=== PATIENT | male | born 1965 | race Caucasian/White ===

== ENCOUNTER 2018-11-24 20:29 | Inpatient (IN) | payer BC ==
[~2018-11-24] VITALS: Ht 190.5 cm; Wt 123.0 kg
--- NOTE | ~2018-11-24 | PR ---
[place], [place] PROGRESS NOTE NAME: KARISSA SCHMID UNIT #: [id number] ROOM: 517 DOCTOR: CALIN MORALES MD BIRTHDATE: [birth year] DOS: 12/01/2018 PULMONARY PROGRESS NOTE SUBJECTIVE: The patient has not been noted any acute complaints. Intermittent abdominal pain has not been noted severe. Denies symptoms of nausea or vomiting. Denies any acute shortness of breath. Denies symptoms of chills. OBJECTIVE: VITAL SIGNS: Temperature noted low grade at 100 degrees Fahrenheit, normal temperature, respiratory rate 20, heart rate 72, blood pressure 164/98 this morning. Pulse oxygen saturation on room air was 96% saturation. HEENT: Moderate obesity. Head was atraumatic. Eyes nonicterus. NECK: Supple. CARDIOVASCULAR: S1 and S2 audible. LUNGS: The patient was noted clear of wheezing or crackles. ABDOMEN: Soft. Bowel sounds present. There was no tenderness elicited. EXTREMITIES: The patient was noted without any acute edema, clubbing or cyanosis. LABORATORY AND DIAGNOSTIC DATA: The patient had a CT scan of the abdomen and pelvis done yesterday with contrast, it shows acute inflammatory changes in the pancreas as well as in parts of the duodenum. There was no abscess formation. Necrotic pancreas was suggested. Lower portion of the CT scan of chest was noted with significant improvement in the aeration and resolution of the pleural fluids. IMPRESSION: 1. The patient with resolving pleural fluid and area of atelectasis. 2. Acute pancreatitis. 2. Chronic obesity. PLAN OF MANAGEMENT: No changes from the pulmonary standpoint. The patient has been improving from pulmonary standpoint. Continue GI followup for the pancreatitis management component. [place], [place] PROGRESS NOTE NAME: KARISSA SCHMID UNIT #: [id number] ROOM: 517 DOCTOR: CALIN MORALES MD BIRTHDATE: [birth year] CALIN ROSALES MD CM:PNTRANS [id number] CALIN RAMOS MD 12/01/18 2317 interface
--- NOTE | ~2018-11-24 | PR ---
[place], [place] PROGRESS NOTE NAME: KARISSA SCHMID UNIT #: [id number] ROOM: [facility] DOCTOR: CONNIE RAMOS MD,CALIN BIRTHDATE: [birth year] DOS: 11/30/2018 PULMONARY PROGRESS NOTE SUBJECTIVE: The patient was noted stable at present time, has been still complaining of pain in the abdomen, but the pain has been noted decreased. There were no symptoms of chest pain. Small sputum expectoration noted with a cough at this time. There were no symptoms of shortness of breath, has not been noted any NOTE: INCOMPLETE DICTATION CALIN ROSALES MD CM:PNTRANS 1512 0001 CALIN RAMOS MD 12/01/18 0002 interface
--- NOTE | ~2018-11-24 | CON ---
[place], [place] REPORT OF CONSULTATION NAME: KARISSA SCHMID UNIT #: [id number] ROOM: 517 DOCTOR: CARMEL PARKER MD BIRTHDATE: [birth year] DOS: 11/26/2018 GASTROENDOSCOPIC CONSULTATION HISTORY OF PRESENT ILLNESS: This a 52-year-old gentleman, who presented with sudden cross abdominal pain, nocturnally developed. He is trying to contribute it to some of the meals that he has taken. However, at the time of admission, his blood sugar was 200 with GFR greater than 60. His electrolytes were balanced. His bilirubin normal. However, SGOT and SGPT of 74 and 180 respectively with an elevated alkaline phosphatase and greater than 4300 lipase. White blood cell was 30 and his neutrophils were 91. Definitely inflammatory response, lactic acid is 2.5. Chest x-ray was showing no acute pathology. CT scan of the abdomen and pelvis done and there were findings compatible with acute pancreatitis, correlation was recommended. Gallbladder sonogram was done. Diffuse hepatic steatosis, no cholelithiasis. No gallbladder thickening and no biliary dilation was noticed. CBC, white blood cell remains 30. Comprehensive metabolic panel reassessment, continues with abnormal LFTs, lipase 2800, dropped to 50%, improvement. Comprehensive metabolic panel was reassessed. Blood cultures negative. PAST MEDICAL HISTORY: Associated with obesity, diabetes mellitus, gastroesophageal reflux, hypertension, gastritis, and hyperlipidemia was noticed. SOCIAL HISTORY: Nonsmoker, nonalcohol consumer. PAST SURGICAL HISTORY: None. ALLERGIES: No known medication. FAMILY HISTORY: History of hypertension and Crohn's. REVIEW OF SYSTEMS: HEENT: Denies double vision, blurred vision. RESPIRATORY: Denies acute shortness of breath. CARDIOVASCULAR: Denies chest pain. DIGESTIVE SYSTEM: Admitted with cross abdominal pain radiating to the back. PHYSICAL EXAMINATION: GENERAL: Morbidly obese patient. HEENT: Head normocephalic, nontraumatic. Mouth and buccal mucosa benign. NECK: Supple, no thyromegaly, no cervical lymphadenopathy. CHEST: Symmetric anatomy, equal expansion. No wheeze. Rhonchi is anteriorly. HEART: Normal sinus rhythm; however, with tachycardic rate of about 100. No rub. ABDOMEN: Obese, large. No rebound tenderness. Bowel sounds present. EXTREMITIES: No cyanosis. Mild stasis dermatitis noticed. No edema is identified. NEUROLOGIC: Alert and oriented to time, place, person. [place], [place] REPORT OF CONSULTATION NAME: KARISSA SCHMID UNIT #: [id number] ROOM: 517 DOCTOR: ELENA RANDHAWA,CARMEL BIRTHDATE: [birth year] IMPRESSION: Pancreatitis, etiology has been sorted out and we are going to start from serum triglyceride level and continue with supportive care with normal saline infusions and pain management and once triglyceride reported then further adjustment to the management pursuant is going to be done. At this time, I am going to say some of the abnormalities SGOT, SGPT, and alkaline phosphatase are also secondary to intrinsic liver disease i.e., secondary to fatty steatosis as well. No intraductal dilation. Therefore, this puts choledocholithiasis at the bottom of possibilities. Work in progress. Thank you very much indeed. CARMEL PARKER MD CM:CONSTR:REPORT OF CONSULTATION 1715 12/10/18 0742 interface
--- NOTE | ~2018-11-24 | PR ---
[place], [place] PROGRESS NOTE NAME: KARISSA SCHMID UNIT #: [id number] ROOM: [facility] DOCTOR: CONNIE RAMOS MD,CALIN BIRTHDATE: [birth year] DOS: 11/30/2018 PULMONARY PROGRESS NOTE SUBJECTIVE: Abdominal pain seemed to be somewhat better previously. The patient denies symptoms of shortness of breath. There was no cough. There were no symptoms of chest pain. Denies symptoms of nausea or vomiting. OBJECTIVE: VITAL SIGNS: His temperature was noted as normal, 100 degrees Fahrenheit noted at midnight, respiratory rate of 16, heart rate 71, blood pressure 176/84 recorded. Pulse oxygen saturation on room air at rest was 98% saturation. HEENT: Shows moderate obesity. Head was atraumatic. Eyes nonicterus. NECK: Supple. CARDIOVASCULAR SYSTEM: S1, S2 audible. LUNGS: The patient noted mild crackles in the lung bases with decreased breath sounds. ABDOMEN: Soft, nontender, bowel sounds present. EXTREMITIES: No acute edema. IMPRESSION: The patient with stable respiratory status, basilar area of atelectasis, acute pancreatitis, low grade fever, rule out lower abdominal pathology for this patient because of the fever. PLAN OF MANAGEMENT: No change in plan of care. Monitor respiratory status. Bronchodilators as previously. Incentive spirometry. Proceed with the CT scan of the abdomen and pelvis, which has been ordered by the primary care attending. CALIN ROSALES MD CM:PNTRANS 1518 [id number] CALIN RAMOS MD 12/01/18 0013 interface
--- NOTE | ~2018-11-24 | EKG ---
[place], [place] ELECTROCARDIOGRAM REPORT NAME: KARISSA SCHMID UNIT #: [id number] ROOM: 507 DOCTOR: ADRIAN DRAFT REPORT BIRTHDATE: [birth year] [facility] Test Date: 2018-11-24 Test Time: 20:58:43 Pat Name: KARISSA SCHMID Department: Room: [facility] Gender: M [employer] Hand: Enid Cano : 1965 Requested By: GABRIEL ESTRADA Order Number: [id number] Reading MD: Walter Pemberton MD Measurements Intervals [place] Rate: 97 P: 41 TN: 189 QRS: 45 QRSD: 105 T: 18 QT: 373 QTc: 474 Interpretive Statements Sinus rhythm Left atrial enlargement Cannot rule out recent posterior MT Compared to ECG 08/01/2018 12:27:21 Myocardial infarct finding still present ST (T wave) deviation still present Electronically Signed On 11-25-2018 17:07:13 PST by Walter Pemberton MD CM:EKGRPT:ELECTROCARDIOGRAM REPORT 57 170 GABRIEL DIALLO DRAFT REPORT GABRIEL ESTRADA DO
--- NOTE | ~2018-11-24 | CON ---
[place], [place] REPORT OF CONSULTATION NAME: KARISSA SCHMID UNIT #: [id number] ROOM: [facility] DOCTOR: CONNIE RAMOS MD,CALIN BIRTHDATE: [birth year] DOS: 11/29/2018 PULMONARY CONSULTATION, EVALUATION AND MANAGEMENT REASON FOR CONSULTATION: Assess the patient for respiratory failure. CONSULTATION REQUESTED BY: Corona Mosher MD HISTORY OF PRESENT ILLNESS: A 52-year-old white male patient who develop acute abdominal pain as the patient was visiting [place], [place] in the hotel. The patient's pain was described in the mid and lower portion of the abdomen and later on the upper portion of the abdomen associated with one-time vomiting. He was also noted with symptoms of nausea. The patient has been seen by ____ and sent to the hospital for further medical management and hospitalized on 11/24/2018. The patient stated the pain has been still noted intermittently. The severity of the pain has been decreased, but not completely resolved. He has been receiving intravenous pain medication, Dilaudid and Toradol at times. He has been assessed with CT scan of the chest yesterday because of the hypoxia noted at rest. The CT of the chest did exclude evidence of pulmonary embolism. The patient denies any coughing or sputum expectoration, which is new, but reported symptoms of chronic cough for the past couple of months, which were reported nonproductive. He denies acute shortness of breath at rest. Denies symptoms of wheezing. There were no symptoms of hemoptysis or chest pain reported by the patient at this time of assessment. The patient has been currently diagnosed with acute pancreatitis, which has been treated conservatively with consultation from GI services. REVIEW OF SYSTEMS: CONSTITUTIONAL SYMPTOMS: Fatigue and tiredness noted without any symptoms of fever or chills. EYES: Denies burning, redness, or tenderness. EARS, NOSE, THROAT SYMPTOMS: Denies sore throat, hoarseness, otalgia, postnasal drainage, or epistaxis. CARDIOVASCULAR SYSTEM: Denies angina pain, edema, or pain of the lower extremity. GASTROINTESTINAL SYMPTOMS: The patient was still complaining of pain in the mid and upper portion of the abdomen intermittently, which was mild to moderate at times without radiation. The patient denies symptoms of nausea, vomiting, or diarrhea. Denies symptoms of hematemesis, melena, or hematochezia. Stated weight loss of a few pounds in the past few months. MUSCULOSKELETAL SYMPTOMS: No joint pain, redness, or tenderness. SKIN: Denies lesions or rashes. CENTRAL NERVOUS SYSTEM: Denies dizziness, headache, diplopia, or syncopal episode. Remaining systems were reviewed. They were noted all negative. PAST MEDICAL HISTORY: Reported as: 1. Moderate obesity. 2. Type 2 diabetes mellitus. [place], [place] REPORT OF CONSULTATION NAME: KARISSA SCHMID UNIT #: [id number] ROOM: [facility] DOCTOR: TINO MORALES MDULAM BIRTHDATE: [birth year] 3. Gastroesophageal reflux. 4. Essential hypertension. 5. Gastritis. 6. Hyperlipidemia. SOCIAL HISTORY: The patient is . Noted no alcohol use. No history of illicit drug use or any tobacco use reported. FAMILY HISTORY: The patient's father at 86 years due to complication of intracerebral hemorrhage. Mother at 84 years due to complication of stroke with history of Crohn's disease also reported. HOME MEDICATIONS: Listed as Lipitor, vitamin D, ferrous sulfate, folic acid, Tradjenta, lisinopril, metoprolol and Protonix. CURRENT ADMINISTERED MEDICATIONS: Use of Norvasc, clonidine, metoprolol tartrate, lisinopril, Lovenox, DVT prophylaxis, cefepime, Toradol, and Dilaudid. DRUG ALLERGIES: No known drug allergies. PHYSICAL EXAMINATION: GENERAL: This is a 52-year-old white male, currently sitting on side of bed without any acute distress. Height of 6 feet 3 inches, weight of 271 pounds, BMI 33.9. VITAL SIGNS: The patient's temperature noted yesterday at 7 p.m. as 101 degree Fahrenheit and at this noon 100.7 degree Fahrenheit, otherwise the patient noted afebrile. Respiratory rate 12-24, heart rate of 76-70, blood pressure 171/98-194/103. HEENT: Head was atraumatic. Eyes nonicterus. NECK: Supple. Oral mucosa was moist. CARDIOVASCULAR SYSTEM: S1, S2 is audible. No added sounds. LUNGS: The patient was noted with minimal crackles at the lung bases with decreased breath sounds. There was no wheezing. ABDOMEN: Noted with moderate obesity without any severe tenderness. Bowel sounds seem to be present. EXTREMITIES: The patient noted without any acute edema, clubbing or cyanosis. MUSCULOSKELETAL: Without acute deformities. CENTRAL NERVOUS SYSTEM: The patient's cranial nerves 2-12 were noted as intact. LABORATORY DATA: CBC on admission was noted with WBC count of 30.6. Hemoglobin and hematocrit were noted normal on 11/24/2018. Platelet count was recorded at 304, 91% segmented neutrophil. Lactic acid 2.5 on that day and the followup lactic acid the same day on 11/24/2018 was normal. CMP on admission; glucose 201, normal BUN and creatinine. The AST 74, ALT 180, alkaline phosphatase 163. Lipase elevated 4351 with normal troponins. The urinalysis that was done on 11/25/2018 noted 1+ protein. CBC on 11/25/2018; WBC count still noted persistent 30,000. Otherwise, CBC remains essentially unchanged. CMP on the next day, normal BUN and creatinine. Reduction of the AST, ALT were also noted. Lipase followup was 2800 the next day as well. Triglyceride this morning was noted as 159 this morning. CMP this morning, normal BUN and creatinine. AST, [place], [place] REPORT OF CONSULTATION NAME: KARISSA SCHMID UNIT #: [id number] ROOM: [facility] DOCTOR: CONNIE RAMOS [facility] BIRTHDATE: [birth year] ALT resolved progressively. CBC that was done yesterday; WBC count 12.3, hemoglobin 11, hematocrit 34.5, platelet count 217,000. The arterial blood gas yesterday pH of 7.42, pCO2 of 54.9 at rest on room air. REVIEW OF THE RADIOLOGY DATA: The chest x-ray that was done on 11/24/2018 was reviewed, was not noted with any acute abnormalities. Chest x-ray that was yesterday completed shows basilar areas of atelectasis. CT of the chest that was completed yesterday does not show any evidence of pulmonary embolism. Small basilar area of atelectasis noted in the lower lung. These findings of the basilar area of atelectasis was also visible with the previous CT scan images included and the CT scan of the abdomen and pelvis that was done on admission. Interval development of small bilateral pleural fluid was noted, greater on the right than the left side. Ultrasound of abdomen was completed, does not show any evidence of cholelithiasis. The pancreas was not visible. The kidneys reported as normal appearance. IMPRESSION: The patient who has been currently admitted to the hospital noted with: 1. Acute hypoxemic respiratory failure secondary to basilar area of atelectasis and pleural fluid formation. The pleural fluid formation, most likely related to fluid use rather than congestive heart failure or active infection. 2. Acute pancreatitis with abnormal liver function tests, possibility of cholangitis cannot be completely excluded. 3. Severe leukocytosis noted admission, which is improving. 4. The patient with acute hypoxic respiratory failure secondary to bilateral pleural fluid area of atelectasis. There were no active signs of pneumonia at this time would be considered. 5. Morbid obesity. 6. Temperature elevation. Close assessment to be done for the patient current pancreas to rule out any abscess formation and infection of the pancreatic bed. The imaging of the ultrasound of the abdomen does not have a clear visualization of the pancreas. 7. Pain was still noted not completely resolved, but somewhat decreased from admission. PLAN OF MANAGEMENT: Minimize the fluid use for the patient. The patient has not been noted with nausea or vomiting, could be continued on the oral diet as well. If the patient continues to have pain, more preferred assessing the patient's current pancreas would be for this patient to have a repeat CT scan of the abdomen and pelvis to exclude any abscess, necrosis or other abnormalities. Usual care, plan of treatment. Follow the recommendations of GI services as well. Additional treatment changes will be recommended based on progression of illness. DVT prophylaxis with the Lovenox to be continued. Bronchodilator has been ordered to help mobilize secretion of endobronchial tree. Use of incentive spirometry as well to improve the aeration of the lung with current atelectasis. Collect the sputum for Gram stain and culture if the patient is able to expectorate any sputum. Other therapy, plan of management changes will be ordered based on progression of his illness. [place], [place] REPORT OF CONSULTATION NAME: KARISSA SCHMID UNIT #: [id number] ROOM: [facility] DOCTOR: CONNIE RAMOS [facility] BIR[facility]: [birth year] CALIN ROSALES MD CM:CONSTR:REPORT OF CONSULTATION 1717 11/30/18 0453 interface
[~2018-11-24 20:29] MED LIST: PROTONIX40 MG PO
[2018-11-24 20:30] VITALS: BP 197/117
[2018-11-24 20:38] VITALS: BP 180/100
--- NOTE | 2018-11-24 20:58 | NUR ---
THE PATIENT WAS GIVEN A SPECIMAN CUP FOR A URINE
[2018-11-24] MEDS ORDERED: NATURE'S BLEND F1 MG PO (21:07)
[2018-11-24] MEDS ORDERED: Zestril,Prinivi40 MG PO (21:07)
[2018-11-24] MEDS ORDERED: FEROSUL325 MG PO (21:07)
[2018-11-24 21:09] LABS: HEMATOCRIT 45.1 % (42.0-52.0); HEMOGLOBIN 15.4 g/dl (14.0-18.0); MEAN CELL VOLUME 80.1 fl (80.0-94.0); MEAN CORPUSCULAR HGB 27.4 pg (27.0-31.0); MEAN CORPUSCULAR HGB CONC 34.1 g/dl (33.0-37.0); MEAN PLATELET VOLUME 8.7 fl (9.6-12.3); PLATELET COUNT AUTOMATED 304 10*3/uL (130-400); RED BLOOD COUNT 5.63 10*6/uL (4.50-5.90); RED CELL DISTRI WIDTH 16.5 % (0-14.5); WHITE BLOOD COUNT 30.6 10*3/uL (4.8-10.8)
[2018-11-24] MEDS ORDERED: METOPROLOL TART50 M1 PO (21:11)
[2018-11-24] MEDS ORDERED: TRADJENTA5 M1 PO (21:11)
[2018-11-24] MEDS ORDERED: ATORVASTATIN CA10 M1 PO (21:11)
[2018-11-24] MEDS ORDERED: VITAMIN D32000 UNI1 PO (21:11)
[2018-11-24 21:28] LABS: ALBUMIN 3.9 gm/dl (3.1-4.5); ALKALINE PHOSPHATASE 163 U/L (45-117); BUN 16 mg/dl (7-24); CHLORIDE 102 mmol/L (98-107); CREATININE 0.95 mg/dL (0.70-1.30); POTASSIUM 3.6 mmol/L (3.5-5.1); SGOT/AST 74 IU/L (3-35); SGPT/ALT 180 U/L (12-78); SODIUM 138 mmol/L (136-145)
[2018-11-24 21:29] LABS: LIPASE 4351 U/L (73-393); PLATELET SUFFICIENCY NORMAL (NORMAL); TOTAL CELLS COUNTED 100 #CELLS; TROPONIN I < 0.015 ng/ml (<0.045)
[2018-11-24 21:38] VITALS: BP 176/103
--- NOTE | 2018-11-24 21:48 | NUR ---
DR ESTRADA NOTIFIED OF LACTIC ACID 2.5
[2018-11-24 22:24] VITALS: BP 184/106
--- NOTE | 2018-11-24 22:27 | NUR ---
THE PATIENT HAS NOT PROVIDED A URINE SAMPLE
--- NOTE | 2018-11-24 23:24 | NUR ---
THE PT IS ALLOWED TO HAVE ICE CHIPS ONLY
[2018-11-25 00:02] VITALS: BP 157/100
[2018-11-25 00:39] VITALS: BP 160/90
--- NOTE | 2018-11-25 00:39 | NUR ---
Time: 38 A 52 year old M admitted to under services of DR. OMAIRA RANDHAWA,[facility]. Pt. arrived via bed from ER. Chief complaint: MID ABD PAIN. +N/V. JUAN GRANADOS
--- NOTE | 2018-11-25 02:25 | NUR ---
REQUESTED AND RECEIVED DILAUDID IV AND RESTORIL PO PER PRN ORDER FOR COMPLAINTS OF MID ABD PAIN RATING AN 8 AND TO ASSIST WITH SLEEP. CALL LIGHT WITHIN REACH. WILL MONITOR FOR EFFECTIVENESS
--- NOTE | 2018-11-25 03:30 | NUR ---
SLEEPING. NO DISTRESS NOTED. RESPIRATIONS EASY. IV FLUIDS MAINTAINED. CALL LIGHT WITHIN REACH
[2018-11-25 05:28] LABS: BILIRUBIN NEGATIVE (NEGATIVE); BLOOD NEGATIVE (NEGATIVE); CLARITY CLEAR (CLEAR); COLOR YELLOW (YELLOW); GLUCOSE NEGATIVE (NEGATIVE); KETONE NEGATIVE (NEGATIVE); LEUKO ESTERASE NEGATIVE (NEGATIVE); NITRITE NEGATIVE (NEGATIVE); PH 5.5 (5.0-9.0); SPECIFIC GRAVITY >= 1.030 (1.005-1.030); UROBILINOGEN 0.2 E.U./dl (0.2-1.0)
[2018-11-25 06:36] LABS: BACTERIA 1+
[2018-11-25 07:16] LABS: HEMATOCRIT 44.6 % (42.0-52.0); HEMOGLOBIN 14.8 g/dl (14.0-18.0); MEAN CELL VOLUME 82.3 fl (80.0-94.0); MEAN CORPUSCULAR HGB 27.3 pg (27.0-31.0); MEAN CORPUSCULAR HGB CONC 33.2 g/dl (33.0-37.0); MEAN PLATELET VOLUME 9.2 fl (9.6-12.3); PLATELET COUNT AUTOMATED 282 10*3/uL (130-400); RED BLOOD COUNT 5.42 10*6/uL (4.50-5.90); RED CELL DISTRI WIDTH 16.7 % (0-14.5); WHITE BLOOD COUNT 30.1 10*3/uL (4.8-10.8)
[2018-11-25 07:36] LABS: ALBUMIN 3.3 gm/dl (3.1-4.5); BUN 15 mg/dl (7-24); CHLORIDE 101 mmol/L (98-107); CHOLESTEROL 106 mg/dL (<200); CREATININE 0.98 mg/dL (0.70-1.30); PHOSPHOROUS 3.8 mg/dL (2.5-4.9); POTASSIUM 4.1 mmol/L (3.5-5.1); SGOT/AST 42 IU/L (3-35); SGPT/ALT 130 U/L (12-78); SODIUM 137 mmol/L (136-145)
[2018-11-25 07:42] LABS: PLATELET SUFFICIENCY NORMAL (NORMAL); TOTAL CELLS COUNTED 100 #CELLS
[2018-11-25 07:44] LABS: ALKALINE PHOSPHATASE 125 U/L (45-117); FREE T4 1.07 ng/dl (0.76-1.46); HDL CHOLESTEROL 45 mg/dl (40-60); LDL CHOLESTEROL 45 mg/dL (9-159); THYROID STIM HORMONE (HS) 0.372 uIU/ml (0.358-4.75); TOTAL PROTEIN 7.3 gm/dL (6.4-8.2); TRIGLYCERIDES 79 mg/dl (<150); VLDL CHOLESTEROL 16 mg/dL (6-40)
[2018-11-25 08:00] VITALS: BP 158/90
[2018-11-25 08:18] LABS: VITAMIN D, 25-HYDROXY 22.8 ng/mL (30-100)
--- NOTE | 2018-11-25 09:00 | NUR ---
Offset Assistant Press Operator in to talk to patient. Patient states lives at home with his . There are 12 steps in the home. Physician: Dr. Santana [facility] Home health services: none Patient's level of ADLs: INDEPENDENT Patient has working utilities: yes DME: none Follow-up physician's appointment after d/c: he prefers to make his own follow up appt after discharge Does patient want to access PORTAL?: no Discharge plan discussed with patient and his who is at the bedside. He lives at home with his . He is independent in his ADLs and ambulation. Discussed home health care services and he denies any home needs at this time. When medically stable he will be discharged to home. JOSE RAMON RODRÍGUEZ
--- NOTE | 2018-11-25 09:05 | NUR ---
PT C/O ABDOMINAL PAIN. PT REQUESTING THIS NURSE TO CALL FOR PAIN MEDICATION ADJUSTMENT. DR WISE NOTIFIED. SHE STATES SHE WILL BE UP TO SEE PT. NO PAIN MEDICATION ADJUSTS AT THIS TIME.
--- NOTE | 2018-11-25 09:43 | NUR ---
DR WISE ON FLOOR AND WILL SEE PT.
--- NOTE | 2018-11-25 10:47 | NUR ---
FlashID HELPING AT THIS TIME. PT RESTING QUIETLY IN BED WITH AT BEDSIDE. wILL MONITOR.
[2018-11-25 12:00] VITALS: BP 177/104
--- NOTE | 2018-11-25 12:13 | NUR ---
DR PARKER CALLED AND NOTIFIED OF CONSULT.
--- NOTE | 2018-11-25 13:06 | NUR ---
PT C/O ABDOMINAL PAIN RATES PAIN 9 1/2 ON PAIN SCALE 0-10. MEDICATED WITH DILAUDID IV PER PRN ORDER, SEE EMAR.
--- NOTE | 2018-11-25 14:25 | NUR ---
PT RESTING IN BED AT THIS TIME WITH EYES CLOSED. FAMILY AT BEDSIDE.
[2018-11-25 16:00] VITALS: BP 138/75
--- NOTE | 2018-11-25 19:49 | NUR ---
Medicated with Dilaudid IV prn for c/o abdominal pain. Will monitor effectiveness. Call light within reach.
--- NOTE | 2018-11-25 20:50 | NUR ---
Patient resting in bed with eyes closed. Dilaudid effective. Will continue to monitor. Call light within reach.
--- NOTE | 2018-11-25 22:27 | NUR ---
Medicated with Dilaudid IV prn for c/o abdominal pain. Patient states "it's not as bad as earlier." Will monitor effectiveness. Call light within reach.
[2018-11-26] VITALS: BP 166/80
--- NOTE | 2018-11-26 01:30 | NUR ---
Medicated with Restoril po prn for help with sleep. Will monitor effectiveness. Call light within reach.
--- NOTE | 2018-11-26 01:34 | NUR ---
Medicated with Dilaudid IV prn for c/o abdominal pain. Will monitor effectiveness. Call light within reach.
--- NOTE | 2018-11-26 02:56 | NUR ---
24 HR chart check completed.
--- NOTE | 2018-11-26 06:38 | NUR ---
Medicated with Dilaudid IV prn for c/o abdominal pain. Will monitor effectiveness. Call light within reach.
[2018-11-26 07:07] LABS: HEMATOCRIT 40.6 % (42.0-52.0); HEMOGLOBIN 12.9 g/dl (14.0-18.0); MEAN CELL VOLUME 83.7 fl (80.0-94.0); MEAN CORPUSCULAR HGB 26.6 pg (27.0-31.0); MEAN CORPUSCULAR HGB CONC 31.8 g/dl (33.0-37.0); MEAN PLATELET VOLUME 9.5 fl (9.6-12.3); PLATELET COUNT AUTOMATED 233 10*3/uL (130-400); RED BLOOD COUNT 4.85 10*6/uL (4.50-5.90); RED CELL DISTRI WIDTH 16.8 % (0-14.5)
[2018-11-26 07:28] LABS: PLATELET SUFFICIENCY NORMAL (NORMAL); TOTAL CELLS COUNTED 100 #CELLS
--- NOTE | 2018-11-26 07:29 | NUR ---
vital signs stable, A&O x3 tawanna, bilateral equal pump operator, heart normal and strong,lung sounds clear bilateraly, respirations regular, good strong pulses throughout, skin turgor non tenting, BS x4 non distended tender, cap refill <3, positive pedal pulse, no edema noted, patient states "no pain" at this time. Gogo Vizcarra SPCC
[2018-11-26 07:41] LABS: ALBUMIN 2.8 gm/dl (3.1-4.5); BUN 19 mg/dl (7-24); CHLORIDE 104 mmol/L (98-107); CREATININE 0.89 mg/dL (0.70-1.30); LIPASE 903 U/L (73-393); POTASSIUM 3.8 mmol/L (3.5-5.1); SGOT/AST 25 IU/L (3-35); SGPT/ALT 72 U/L (12-78); SODIUM 139 mmol/L (136-145)
[2018-11-26 07:44] LABS: ALKALINE PHOSPHATASE 101 U/L (45-117)
[2018-11-26 08:00] VITALS: BP 176/89
--- NOTE | 2018-11-26 10:14 | NUR ---
PATIENT COMPLAINED OF LOWER ABD PAIN AND ALSO BACK PAIN WHEN ASK ON A SCALE OF 0-10 PATIENT STATED "6" AND THAT " MY BACK HURTS WHEN LAYING IN THIS BED" PATIEN GIVE DILAUDID 1ML IVP BY LUANNE ESCALANTE RN WILL CONTINUE TO ASSESS. ERASMO STROUD SPCC
--- NOTE | 2018-11-26 11:01 | NUR ---
DILAUDID 1ML ADMINISTERED IVP BY LUANNE ESCALANTE RN AT 945AM, WHEN REASSESED AND PATIENT ASKED IF HE HAD ANY PAIN ON A SCALE OF 0-10 PATIENT STATED "4 MAYBE 5' AND THAT HE ALSO HAD A HEADACHE WILL CONTINUE TO MONITOR ERASMO STROUD SPDRAGANCC
[2018-11-26 16:00] VITALS: BP 178/92; BP 181/103
[2018-11-26 20:00] VITALS: BP 214/104
--- NOTE | 2018-11-26 20:25 | NUR ---
PATIENT'S BLOOD PRESSURE 214/104. MANUALLY B/P IS 228/104. DR. CASTANO NOTIFIED. NEW ORDER TO RESTART PATIENT'S HOME B/P MEDS AND CALL HIM IN 2 HOURS AND LET HIM KNOW WHAT BLOOD PRESSURE IS.
--- NOTE | 2018-11-26 20:41 | NUR ---
PATIENT MEDICATED WITH DILAUDID FOR COMPLAINTS OF BACK PAIN. WILL CONTINUE TO MONITOR.
--- NOTE | 2018-11-26 23:06 | NUR ---
PATIENT'S BLOOD PRESSURE 214/[address] CASTANO NOTIFIED. NEW ORDER FOR CLONIDINE 0.1MG NOW AND RECHECK BLOOD PRESSURE IN ONE HOUR AND NOTIFY HIM WITH RESULTS.
[2018-11-27] VITALS: BP 178/91
--- NOTE | 2018-11-27 00:10 | NUR ---
PATIENT MEDICATED WITH DILAUDID FOR COMPLAINTS OF BACK PAIN. WILL CONTINUE TO MONITOR.
--- NOTE | 2018-11-27 00:46 | NUR ---
DR. CASTANO NOTIFIED OF PATIENT'S BLOOD PRESSURE OF 178/91. NO NEW ORDERS.
--- NOTE | 2018-11-27 03:08 | NUR ---
PATIENT MEDICATED WITH DILAUDID FOR COMPLAINTS OF BACK PAIN. WILL CONTINUE TO MONITOR. CALL LIGHT IN REACH.
[2018-11-27 06:40] LABS: ALBUMIN 2.5 gm/dl (3.1-4.5); ALKALINE PHOSPHATASE 83 U/L (45-117); BILIRUBIN, DIRECT 0.3 mg/dL (0.0-0.2); BUN 17 mg/dl (7-24); CHLORIDE 106 mmol/L (98-107); CREATININE 0.72 mg/dL (0.70-1.30); POTASSIUM 3.7 mmol/L (3.5-5.1); SGOT/AST 23 IU/L (3-35); SGPT/ALT 48 U/L (12-78); SODIUM 141 mmol/L (136-145); TOTAL PROTEIN 6.7 gm/dL (6.4-8.2); TRIGLYCERIDES 199 mg/dl (<150)
[2018-11-27 08:00] VITALS: BP 172/96
[2018-11-27 08:12] LABS: HEMATOCRIT 37.5 % (42.0-52.0); HEMOGLOBIN 12.1 g/dl (14.0-18.0); MEAN CELL VOLUME 85.4 fl (80.0-94.0); MEAN CORPUSCULAR HGB 27.6 pg (27.0-31.0); MEAN CORPUSCULAR HGB CONC 32.3 g/dl (33.0-37.0); MEAN PLATELET VOLUME 9.9 fl (9.6-12.3); PLATELET COUNT AUTOMATED 222 10*3/uL (130-400); RED BLOOD COUNT 4.39 10*6/uL (4.50-5.90); RED CELL DISTRI WIDTH 16.5 % (0-14.5); WHITE BLOOD COUNT 18.5 10*3/uL (4.8-10.8)
[2018-11-27 08:35] LABS: TOTAL CELLS COUNTED 100 #CELLS
[2018-11-27 08:36] LABS: PLATELET SUFFICIENCY NORMAL (NORMAL)
[2018-11-27 12:00] VITALS: BP 172/100
[2018-11-27 16:00] VITALS: BP 198/104
--- NOTE | 2018-11-27 18:47 | NUR ---
PT REQUESTED AND WAS MEDICATED WITH DILAUDID FOR C/O ABDOMINAL PAIN. CALL LIGHT IN REACH. WILL MONITOR
[2018-11-27 20:00] VITALS: BP 164/109
--- NOTE | 2018-11-27 23:30 | NUR ---
DR. WISE NOTIFIED OF BLOOD PRESSURE OF 160/100.
[2018-11-28] VITALS (8 sets, daily range): BP systolic 158–210; BP diastolic 90–114
--- NOTE | 2018-11-28 00:26 | NUR ---
PATIENT MEDICATED WITH DILAUDID FOR COMPLAINTS OF BACK PAIN. WILL CONTINUE TO MONITOR.
--- NOTE | 2018-11-28 02:45 | NUR ---
DILAUDID EFFECTIVE. NO SIGNS OR SYMPTOMS OF DISTRESS NOTED. RESPIRATIONS REGULAR AND NON-LABORED. CALL LIGHT IN REACH.
--- NOTE | 2018-11-28 04:21 | NUR ---
24 HR chart check completed.
[2018-11-28 06:25] LABS: BASO # 0.1 10*3/uL (0.0-0.1); BASO % 0.3 % (0.0-1.0); EOS # 0.3 10*3/uL (0.0-0.4); EOS % 1.7 % (1.0-4.0); HEMATOCRIT 35.4 % (42.0-52.0); HEMOGLOBIN 11.1 g/dl (14.0-18.0); LYMPH # 1.4 10*3/uL (1.3-4.4); LYMPH % 9.4 % (27.0-41.0); MEAN CELL VOLUME 85.1 fl (80.0-94.0); MEAN CORPUSCULAR HGB 26.7 pg (27.0-31.0); MEAN CORPUSCULAR HGB CONC 31.4 g/dl (33.0-37.0); MEAN PLATELET VOLUME 9.6 fl (9.6-12.3); MONO # 1.4 10*3/uL (0.1-1.0); MONO % 9.9 % (3.0-9.0); NEUT # 11.1 10*3/uL (2.3-7.9); NEUT % 77.8 % (47.0-73.0); PLATELET COUNT AUTOMATED 216 10*3/uL (130-400); RED BLOOD COUNT 4.16 10*6/uL (4.50-5.90); RED CELL DISTRI WIDTH 16.3 % (0-14.5); WHITE BLOOD COUNT 14.3 10*3/uL (4.8-10.8)
[2018-11-28 06:56] LABS: ALBUMIN 2.4 gm/dl (3.1-4.5); ALKALINE PHOSPHATASE 95 U/L (45-117); BUN 16 mg/dl (7-24); CHLORIDE 103 mmol/L (98-107); CREATININE 0.69 mg/dL (0.70-1.30); POTASSIUM 3.2 mmol/L (3.5-5.1); SGOT/AST 28 IU/L (3-35); SGPT/ALT 43 U/L (12-78); SODIUM 137 mmol/L (136-145); TOTAL PROTEIN 6.8 gm/dL (6.4-8.2)
--- NOTE | 2018-11-28 07:30 | NUR ---
Bedside report done, pt c/o pain to back. Requesting dilaudid, medicated per prn order.
--- NOTE | 2018-11-28 08:20 | NUR ---
Notified Dr. Mosher of elevated bp of 190/100. New orders received.
--- NOTE | 2018-11-28 09:00 | NUR ---
Entry Level Account Representative in to see patient. at the bedside. No new needs or request at this time. He denies any home needs. When medically stable he will be discharged to home.
--- NOTE | 2018-11-28 09:41 | NUR ---
Rechecked MBP after clonodine. BP was 194/100. Attempted to call Dr. Mosher on his cell. No answer but message left to call back. Awaiting return call.
--- NOTE | 2018-11-28 09:47 | NUR ---
Spoke with Dr. Mosher regarding bp of 194/100 past clonodine. Reviewed pt medications. New orders received for lopressor 50 mg bid.
--- NOTE | 2018-11-28 11:16 | NUR ---
MBP was 184/100. Pt is requesting dilaudid. States pain is 3/10. Given per prn order.
--- NOTE | 2018-11-28 11:22 | NUR ---
Notified Dr. Mosher of [facility] of 184/100. States to recheck in 2 hours.
--- NOTE | 2018-11-28 13:20 | NUR ---
MBP to left arm was 158/90.
--- NOTE | 2018-11-28 15:40 | NUR ---
Medicated with dilaudid iv per prn order for complaints of pain to left side of back.
--- NOTE | 2018-11-28 16:50 | NUR ---
Manual bp was 220/120. Spoke with Dr. Mosher. Orders received.
--- NOTE | 2018-11-28 17:00 | NUR ---
ABG DRAWN VIA RIGHT RADIAL ARTERY. + MODIFIED ALLENS TEST. SPECIMEN OBTAINED x1 ATTEMPT. FOOD PRODUCTS TESTER x5 MINUTES, PRESSURE BANDAGE APPLIED. SPECIMEN TAKEN TO LAB.
[2018-11-28 17:08] LABS: ABG BASE EXCESS 0.6 mmol/L (-2.0-2.0); ABG HCO3 24.2 mmol/l (22-26); ABG O2 SATURATION 87.7 % (95-97); ARTERIAL BLOOD GAS PCO2 37.4 mmHg (35-45); ARTERIAL BLOOD GAS PH 7.427 (7.35-7.45); ARTERIAL BLOOD GAS PO2 54.9 mmHg (80-90)
[2018-11-28 17:10] LABS: BASO # 0.1 10*3/uL (0.0-0.1); BASO % 0.4 % (0.0-1.0); EOS # 0.3 10*3/uL (0.0-0.4); EOS % 2.4 % (1.0-4.0); HEMATOCRIT 34.5 % (42.0-52.0); LYMPH # 1.5 10*3/uL (1.3-4.4); LYMPH % 11.8 % (27.0-41.0); MEAN CELL VOLUME 83.9 fl (80.0-94.0); MEAN CORPUSCULAR HGB 26.8 pg (27.0-31.0); MEAN CORPUSCULAR HGB CONC 31.9 g/dl (33.0-37.0); MONO # 1.4 10*3/uL (0.1-1.0); MONO % 11.6 % (3.0-9.0); NEUT # 8.9 10*3/uL (2.3-7.9); NEUT % 72.5 % (47.0-73.0); PLATELET COUNT AUTOMATED 217 10*3/uL (130-400); RED BLOOD COUNT 4.11 10*6/uL (4.50-5.90); RED CELL DISTRI WIDTH 16.2 % (0-14.5); WHITE BLOOD COUNT 12.3 10*3/uL (4.8-10.8)
--- NOTE | 2018-11-28 17:10 | NUR ---
Dr. Edgard Messina came to floor states that Dr. Mosher had called him about this pt and to call with results of labs and Cxr when available.
[2018-11-28 17:25] LABS: ALBUMIN 2.2 gm/dl (3.1-4.5); ALKALINE PHOSPHATASE 96 U/L (45-117); BUN 12 mg/dl (7-24); CHLORIDE 103 mmol/L (98-107); CREATININE 0.73 mg/dL (0.70-1.30); POTASSIUM 3.7 mmol/L (3.5-5.1); SGOT/AST 47 IU/L (3-35); SGPT/ALT 53 U/L (12-78); SODIUM 137 mmol/L (136-145); TOTAL PROTEIN 6.4 gm/dL (6.4-8.2)
--- NOTE | 2018-11-28 17:45 | NUR ---
DR. Edgard Messina notified of MBP of 190/120. Reviewed meds with him, reviewed labs. States he will be up to see pt.
--- NOTE | 2018-11-28 17:55 | NUR ---
PT did not have o2 on. Pox was 89%.
--- NOTE | 2018-11-28 18:18 | NUR ---
Notified Dr. Long of consult, reason for consult, reviewed ABG's notified that pt is currently receiving dilaudid for pancreatitis, notified that bp was elevated as well. Notified that pt is on o2 at 2l currently. Notified that Dr. Edgard Messina is here to evaluate for Dr. Mosher.
--- NOTE | 2018-11-28 18:40 | NUR ---
Pt states he feels hot. PA checked temp result of 98.7 obtained. Radiology called to see when pt last ate. PT family states he ate approx 45 minutes ago. Stated they would wait a bit to come take him for testing.
--- NOTE | 2018-11-28 18:45 | NUR ---
Notified by wardrobe supervisor there is now order to transfer pt to [facility].
--- NOTE | 2018-11-28 18:59 | NUR ---
Transfered via bed to [facility]. Pt family instructed to please wait on 4e in lobby until able to go to [facility].
--- NOTE | 2018-11-28 19:11 | NUR ---
Report given to Perla Aguilar Rn in [facility].
[2018-11-28 21:05] LABS: BILIRUBIN NEGATIVE (NEGATIVE); BLOOD TRACE-INTACT (NEGATIVE); CLARITY CLEAR (CLEAR); COLOR YELLOW (YELLOW); GLUCOSE 1+ (NEGATIVE); KETONE TRACE (NEGATIVE); LEUKO ESTERASE NEGATIVE (NEGATIVE); NITRITE NEGATIVE (NEGATIVE); PH 5.5 (5.0-9.0); SPECIFIC GRAVITY <= 1.005 (1.005-1.030)
[2018-11-28 21:30] LABS: BACTERIA TRACE
[2018-11-29] VITALS (8 sets, daily range): BP systolic 154–200; BP diastolic 89–103
--- NOTE | 2018-11-29 04:06 | NUR ---
CALLED DOCTOR YAMEL PATIENTS BP IS 200/100 MANUAL. ORDERED FOR 5 MG HYDRALIZINE NOW.
--- NOTE | 2018-11-29 05:35 | NUR ---
PATIENT SLEPT BETTER PER PT. PATIENT DOES HAVE LEFT SIDED PAIN STILL BUT MEDICATION TORADOL DOES HELP. PATIENT STAES HE GETS UP WALKING AND THAT HE IS HUNGRY AND WANTS TO EAT.
--- NOTE | 2018-11-29 10:51 | NUR ---
Dr. Ruth was called and notified of triglyceride level per his request. Also notified of abdominal US result.
[2018-11-29 15:08] LABS: FREE T4 1.18 ng/dl (0.76-1.46)
[2018-11-29 15:13] LABS: THYROID STIM HORMONE (HS) 1.23 uIU/ml (0.358-4.75)
--- NOTE | 2018-11-29 16:22 | NUR ---
Dr[facility] Orders recieved.
[2018-11-30] VITALS: BP 183/99
[2018-11-30 04:00] VITALS: BP 192/100
[2018-11-30 05:30] LABS: MEAN CELL VOLUME 82.5 fl (80.0-94.0); MEAN CORPUSCULAR HGB 27.5 pg (27.0-31.0); MEAN CORPUSCULAR HGB CONC 33.3 g/dl (33.0-37.0); MEAN PLATELET VOLUME 9.4 fl (9.6-12.3); PLATELET COUNT AUTOMATED 238 10*3/uL (130-400); RED CELL DISTRI WIDTH 15.9 % (0-14.5)
[2018-11-30 05:49] LABS: ALBUMIN 2.4 gm/dl (3.1-4.5); BUN 9 mg/dl (7-24); CHLORIDE 105 mmol/L (98-107); CREATININE 0.61 mg/dL (0.70-1.30); POTASSIUM 3.1 mmol/L (3.5-5.1); SGOT/AST 42 IU/L (3-35); SGPT/ALT 63 U/L (12-78); SODIUM 141 mmol/L (136-145)
[2018-11-30 05:51] LABS: ALKALINE PHOSPHATASE 92 U/L (45-117); TOTAL PROTEIN 6.6 gm/dL (6.4-8.2)
[2018-11-30 06:34] LABS: PLATELET SUFFICIENCY NORMAL (NORMAL); POLYCHROMASIA SLIGHT; TOTAL CELLS COUNTED 100 #CELLS
[2018-11-30 08:00] VITALS: BP 194/100
--- NOTE | 2018-11-30 08:56 | NUR ---
Awake and alert. Up in room. Hypokalemic , Dr. Mosher notified and orders were recieved.
[2018-11-30 12:00] VITALS: BP 176/84
--- NOTE | 2018-11-30 12:29 | NUR ---
Dr. Mcdermott in , REdi cat given awaiting transport for CT abdo.
--- NOTE | 2018-11-30 13:51 | NUR ---
IV CAYDEN leaking at site. Dc'd and re-started to [facility].
[2018-11-30 16:00] VITALS: BP 177/98
[2018-11-30 20:00] VITALS: BP 168/102
--- NOTE | 2018-11-30 21:05 | NUR ---
MEDICATED WITH RESTORIL PER PRN ORDER FOR C/O INSOMNIA.
[2018-12-01] VITALS: BP 162/85
--- NOTE | 2018-12-01 00:15 | NUR ---
RESTING IN BED WITHOUT C/O'S. SL TEMP NOTED OF 100 TYMPANIC. HEP LOCK ITNACT. NO DISTRESS NOTED. TO BE MOVED TO [facility].
--- NOTE | 2018-12-01 00:53 | NUR ---
PATIENT ARRIVED TO [facility]LO[facility] FROM [facility]. REPORT WAS GIVEN.
--- NOTE | 2018-12-01 00:57 | NUR ---
0050 PT TRANSFERRED TO VIA WITH BELONGINGS. REPORT GIVEN. CONDITION STABLE.
[2018-12-01 06:45] LABS: HEMATOCRIT 35.8 % (42.0-52.0); HEMOGLOBIN 11.6 g/dl (14.0-18.0); MEAN CELL VOLUME 83.4 fl (80.0-94.0); MEAN CORPUSCULAR HGB CONC 32.4 g/dl (33.0-37.0); MEAN PLATELET VOLUME 9.1 fl (9.6-12.3); PLATELET COUNT AUTOMATED 275 10*3/uL (130-400); RED BLOOD COUNT 4.29 10*6/uL (4.50-5.90); RED CELL DISTRI WIDTH 15.7 % (0-14.5); WHITE BLOOD COUNT 12.5 10*3/uL (4.8-10.8)
[2018-12-01 07:09] LABS: BASOPHILS 2 % (0-1); TOTAL CELLS COUNTED 100 #CELLS
[2018-12-01 07:10] LABS: PLATELET SUFFICIENCY NORMAL (NORMAL)
[2018-12-01 07:24] LABS: CHLORIDE 102 mmol/L (98-107); POTASSIUM 3.5 mmol/L (3.5-5.1); SODIUM 135 mmol/L (136-145)
[2018-12-01 07:30] LABS: ALBUMIN 2.6 gm/dl (3.1-4.5); ALKALINE PHOSPHATASE 91 U/L (45-117); BUN 9 mg/dl (7-24); CREATININE 0.66 mg/dL (0.70-1.30); SGOT/AST 27 IU/L (3-35); SGPT/ALT 51 U/L (12-78); TOTAL PROTEIN 7.1 gm/dL (6.4-8.2)
[2018-12-01 09:00] VITALS: BP 164/98
--- NOTE | 2018-12-01 09:00 | NUR ---
Pull Out Operator in to see patient. No new needs or request at this time. He denies any home needs. When medically stable he will be discharged to home.
[2018-12-01 12:00] VITALS: BP 170/88
[2018-12-01] MEDS ORDERED: ACTOS15 M1 PO (14:13)
[2018-12-01] MEDS ORDERED: AMLODIPINE BESY10 MG PO (14:13)
--- NOTE | 2018-12-01 15:35 | NUR ---
Discharge instructions reviewed with patient/family. Patient receptive and verbalizes understanding. Follow-up care arranged. Written instructions given to patient/family. WENT OVER DISCHARGE PACKET WITH PATIENT AND FAMILY, PATIENT RECIEVED PRINTED PRESCRIPTIONS. PATIENT AWARE OF FOLLOW UP APPOINTMENT WITH DR. CASTANO TOMORROW. IV REMOVED, PATIENT TOLERATED WELL. HEART MONITOR REMOVED AND PLACED IN NURSES STATION. PATIENT DENIES ANY NEEDS OR CONCERNS AT THIS TIME. PATIENT DENIES THE NEED FOR A WHEELCHAIR. ALL BELONGINGS WITH PATIENT AT THIS TIME. NOY MYLES E
[2018-12-03 00:06] LABS: METANEPHRINE, PLASMA <10 pg/mL (0-62); NORMETANEPHRINE, PLASMA 14 pg/mL (0-145)
== END 2018-12-01 15:35 | disposition home or self-care (01) | DRG 871 ==
LOC: ED 20:29 → EDHOLD 23:26 → 5E 23:26 → ICCU 11-28 18:57 → 5E 12-01 00:41
PROVIDERS: Family Medicine; Internal Medicine; Internal Medicine Gastroenterology; Internal Medicine Nephrology; Student in an Organized Health Care Education/Training Program; ADMIT Internal Medicine
DX: A41.9 Sepsis, unspecified organism (principal); K85.90 Acute pancreatitis without necrosis or infection, unspecified; J96.01 Acute respiratory failure with hypoxia; I16.1 Hypertensive emergency; J98.11 Atelectasis; J90 Pleural effusion, not elsewhere classified; R18.8 Other ascites; E78.5 Hyperlipidemia, unspecified; E87.6 Hypokalemia; E66.01 Morbid (severe) obesity due to excess calories; R74.0 Nonspecific elevation of levels of transaminase and lactic acid dehydrogenase [LDH]; E11.65 Type 2 diabetes mellitus with hyperglycemia; K76.0 Fatty (change of) liver, not elsewhere classified; K21.9 Gastro-esophageal reflux disease without esophagitis; I10 Essential (primary) hypertension; E55.9 Vitamin D deficiency, unspecified; Z68.33 Body mass index [BMI] 33.0-33.9, adult; Z82.3 Family history of stroke; Z83.79 Family history of other diseases of the digestive system; Z82.49 Family history of ischemic heart disease and other diseases of the circulatory system; Z79.899 Other long term (current) drug therapy

== ENCOUNTER → 2018-12-22 | Outpatient (CLI) | payer BC ==
[~2018-12-22] MED LIST changes: +ACTOS15 M1 PO; +AMLODIPINE BESY10 MG PO; +ATORVASTATIN CA10 M1 PO; +FEROSUL325 MG PO; +METOPROLOL TART50 M1 PO; +NATURE'S BLEND F1 MG PO; +TRADJENTA5 M1 PO; +VITAMIN D32000 UNI1 PO; +Zestril,Prinivi40 MG PO
[2018-12-22 10:47] LABS: HEMATOCRIT 39.5 % (42.0-52.0); HEMOGLOBIN 12.8 g/dl (14.0-18.0); MEAN CELL VOLUME 83.3 fl (80.0-94.0); MEAN CORPUSCULAR HGB CONC 32.4 g/dl (33.0-37.0); MEAN PLATELET VOLUME 9.4 fl (9.6-12.3); RED BLOOD COUNT 4.74 10*6/uL (4.50-5.90); RED CELL DISTRI WIDTH 14.7 % (0-14.5); WHITE BLOOD COUNT 5.8 10*3/uL (4.8-10.8)
[2018-12-22 11:02] LABS: ALBUMIN 3.6 gm/dl (3.1-4.5); ALKALINE PHOSPHATASE 102 U/L (45-117); BUN 12 mg/dl (7-24); CHLORIDE 107 mmol/L (98-107); CHOLESTEROL 145 mg/dL (<200); CREATININE 0.86 mg/dL (0.70-1.30); HDL CHOLESTEROL 44 mg/dl (40-60); POTASSIUM 3.7 mmol/L (3.5-5.1); SGOT/AST 13 IU/L (3-35); SGPT/ALT 29 U/L (12-78); SODIUM 142 mmol/L (136-145); TOTAL PROTEIN 7.9 gm/dL (6.4-8.2)
[2018-12-22 11:03] LABS: LDL CHOLESTEROL 84 mg/dL (9-159); TRIGLYCERIDES 83 mg/dl (<150); VLDL CHOLESTEROL 17 mg/dL (6-40)
== END | disposition home or self-care (01) ==
LOC: LAB 10:03
PROVIDERS: Family Medicine
DX: I10 Essential (primary) hypertension (principal); E78.00 Pure hypercholesterolemia, unspecified; R06.02 Shortness of breath

== ENCOUNTER → 2019-11-20 | Outpatient (CLI) | payer BC ==
[2019-11-20 10:17] LABS: HEMATOCRIT 45.2 % (42.0-52.0); HEMOGLOBIN 15.7 g/dl (14.0-18.0); MEAN CELL VOLUME 85.9 fl (80.0-94.0); MEAN CORPUSCULAR HGB 29.8 pg (27.0-31.0); MEAN CORPUSCULAR HGB CONC 34.7 g/dl (33.0-37.0); MEAN PLATELET VOLUME 9.3 fl (9.6-12.3); RED BLOOD COUNT 5.26 10*6/uL (4.50-5.90); WHITE BLOOD COUNT 8.2 10*3/uL (4.8-10.8)
[2019-11-20 10:47] LABS: ALBUMIN 4.1 gm/dl (3.1-4.5); ALKALINE PHOSPHATASE 91 U/L (45-117); BUN 14 mg/dl (7-24); CHLORIDE 104 mmol/L (98-107); CHOLESTEROL 163 mg/dL (<200); CPK 49 U/L (39-308); CREATININE 0.92 mg/dL (0.70-1.30); HDL CHOLESTEROL 40 mg/dl (40-60); LDL CHOLESTEROL 72 mg/dL (9-159); POTASSIUM 3.6 mmol/L (3.5-5.1); SGOT/AST 16 IU/L (3-35); SGPT/ALT 40 U/L (12-78); SODIUM 139 mmol/L (136-145); TOTAL PROTEIN 7.6 gm/dL (6.4-8.2); TRIGLYCERIDES 257 mg/dl (<150); VLDL CHOLESTEROL 51 mg/dL (6-40)
== END | disposition home or self-care (01) ==
LOC: LAB 09:56
PROVIDERS: Family Medicine
DX: E55.9 Vitamin D deficiency, unspecified (principal); E78.00 Pure hypercholesterolemia, unspecified; E11.9 Type 2 diabetes mellitus without complications; I10 Essential (primary) hypertension

== ENCOUNTER → 2020-05-07 | Outpatient (CLI) | payer BC ==
[2020-05-07 13:33] LABS: HEMATOCRIT 43.8 % (42.0-52.0); MEAN CELL VOLUME 87.3 fl (80.0-94.0); MEAN CORPUSCULAR HGB 30.1 pg (27.0-31.0); MEAN CORPUSCULAR HGB CONC 34.5 g/dl (33.0-37.0); MEAN PLATELET VOLUME 9.1 fl (9.6-12.3); RED BLOOD COUNT 5.02 10*6/uL (4.50-5.90); RED CELL DISTRI WIDTH 13.2 % (0-14.5); WHITE BLOOD COUNT 7.8 10*3/uL (4.8-10.8)
[2020-05-07 14:03] LABS: ALBUMIN 3.9 gm/dl (3.1-4.5); BUN 18 mg/dl (7-24); CHLORIDE 107 mmol/L (98-107); CHOLESTEROL 144 mg/dL (<200); CPK 70 U/L (39-308); CREATININE 0.91 mg/dL (0.70-1.30); HDL CHOLESTEROL 39 mg/dl (40-60); LDL CHOLESTEROL 73 mg/dL (9-159); POTASSIUM 3.6 mmol/L (3.5-5.1); SGOT/AST 15 IU/L (3-35); SGPT/ALT 31 U/L (12-78); SODIUM 140 mmol/L (136-145); TOTAL PROTEIN 7.8 gm/dL (6.4-8.2); TRIGLYCERIDES 158 mg/dl (<150); VLDL CHOLESTEROL 32 mg/dL (6-40)
[2020-05-07 14:04] LABS: ALKALINE PHOSPHATASE 81 U/L (45-117)
== END | disposition home or self-care (01) ==
LOC: LAB 13:03
PROVIDERS: Family Medicine
DX: E11.9 Type 2 diabetes mellitus without complications (principal); E55.9 Vitamin D deficiency, unspecified; E78.00 Pure hypercholesterolemia, unspecified

== ENCOUNTER → 2020-12-06 | Outpatient (CLI) | payer BC ==
[2020-12-06 12:02] LABS: HEMATOCRIT 46.2 % (42.0-52.0); MEAN CELL VOLUME 87.7 fl (80.0-94.0); MEAN CORPUSCULAR HGB CONC 33.1 g/dl (33.0-37.0); MEAN PLATELET VOLUME 9.4 fl (9.6-12.3); RED BLOOD COUNT 5.27 10*6/uL (4.50-5.90); RED CELL DISTRI WIDTH 13.5 % (0-14.5); WHITE BLOOD COUNT 6.8 10*3/uL (4.8-10.8)
[2020-12-06 12:24] LABS: ALBUMIN 3.8 gm/dl (3.1-4.5); ALKALINE PHOSPHATASE 83 U/L (45-117); BUN 17 mg/dl (7-24); CHLORIDE 107 mmol/L (98-107); CHOLESTEROL 220 mg/dL (<200); CPK 53 U/L (39-308); CREATININE 0.87 mg/dL (0.70-1.30); HDL CHOLESTEROL 43 mg/dl (40-60); LDL CHOLESTEROL 131 mg/dL (9-159); POTASSIUM 3.8 mmol/L (3.5-5.1); SGOT/AST 11 IU/L (3-35); SGPT/ALT 32 U/L (12-78); SODIUM 141 mmol/L (136-145); TOTAL PROTEIN 7.6 gm/dL (6.4-8.2); TRIGLYCERIDES 231 mg/dl (<150); VLDL CHOLESTEROL 46 mg/dL (6-40)
== END | disposition home or self-care (01) ==
LOC: LAB 10:41
PROVIDERS: ATTEND Family Medicine
DX: E11.9 Type 2 diabetes mellitus without complications (principal); E78.00 Pure hypercholesterolemia, unspecified; I10 Essential (primary) hypertension

== ENCOUNTER → 2023-02-18 | Outpatient (CLI) | payer BC ==
[~2023-02-18] MED LIST changes: +CARVEDILOL25 MG PO; +CHLORTHALIDONE25 MG PO; +HYDRALAZINE HC100 MG PO; +LISINOPRIL40 MG PO; +METFORMIN HYD1000 MG PO; +NIFEDIPINE30 MG PO; +ORPHENADRINE C100 M1 PO; +PANTOPRAZOLE SO40 MG PO; +SMZ/TMP DS 800-160; +SPIRONOLACTONE100 MG PO; +SULFAMETHOXAZOLE-TMP
[2023-02-18 17:38] LABS: HEMATOCRIT 28.1 % (42.0-52.0); MEAN CELL VOLUME 88.4 fl (80.0-94.0); MEAN CORPUSCULAR HGB 28.6 pg (27.0-31.0); MEAN CORPUSCULAR HGB CONC 32.4 g/dl (33.0-37.0); MEAN PLATELET VOLUME 8.6 fl (9.6-12.3); RED BLOOD COUNT 3.18 10*6/uL (4.50-5.90); RED CELL DISTRI WIDTH 13.6 % (0-14.5); WHITE BLOOD COUNT 4.8 10*3/uL (4.8-10.8)
[2023-02-18 17:50] LABS: INTERNATIONAL NORM RATIO 1.1 (2.0-3.5)
[2023-02-18 18:33] LABS: ALKALINE PHOSPHATASE 107 U/L (46-116); BUN 19 mg/dl (9-23); CHLORIDE 104 mmol/L (98-107); CHOLESTEROL 162 mg/dL (<200); LDL CHOLESTEROL 82 mg/dL (9-159); POTASSIUM 4.1 mmol/L (3.4-5.1); TOTAL PROTEIN 7.6 gm/dL (6.0-8.0); TRIGLYCERIDES 258 mg/dl (<150)
[2023-02-18 18:35] LABS: SGPT/ALT < 7 U/L (10-49); VITAMIN D, 25-HYDROXY 26.8 ng/mL (30-100)
== END | disposition home or self-care (01) ==
LOC: LAB 17:07
PROVIDERS: Family Medicine; ATTEND Surgery Vascular Surgery
DX: Z01.818 Encounter for other preprocedural examination (principal); I73.9 Peripheral vascular disease, unspecified; I45.19 Other right bundle-branch block; R79.1 Abnormal coagulation profile; R07.9 Chest pain, unspecified; R53.83 Other fatigue; A41.9 Sepsis, unspecified organism; E78.00 Pure hypercholesterolemia, unspecified; E55.9 Vitamin D deficiency, unspecified; Z95.828 Presence of other vascular implants and grafts

== ENCOUNTER → 2023-02-22 | Day surgery (SDC) | payer BC ==
[~2023-02-22] VITALS: Ht 190.5 cm; Wt 108.0 kg
[2023-02-22 09:40] VITALS: BP 94/58
[2023-02-22 10:50] VITALS: BP 92/52
[2023-02-22 11:05] VITALS: BP 93/63
[2023-02-22 11:20] VITALS: BP 106/66
[2023-02-22 11:35] VITALS: BP 109/67
== END | disposition home or self-care (01) ==
LOC: SDC 02-20 10:00
PROVIDERS: ATTEND Surgery Vascular Surgery
DX: Z45.2 Encounter for adjustment and management of vascular access device (principal); L03.114 Cellulitis of left upper limb; I10 Essential (primary) hypertension; E11.9 Type 2 diabetes mellitus without complications

== ENCOUNTER → 2023-04-02 | Outpatient (CLI) | payer BC ==
[2023-04-02 10:36] LABS: HEMATOCRIT 35.5 % (42.0-52.0); MEAN CELL VOLUME 84.7 fl (80.0-94.0); MEAN CORPUSCULAR HGB 26.5 pg (27.0-31.0); MEAN CORPUSCULAR HGB CONC 31.3 g/dl (33.0-37.0); MEAN PLATELET VOLUME 8.6 fl (9.6-12.3); RED BLOOD COUNT 4.19 10*6/uL (4.50-5.90); RED CELL DISTRI WIDTH 14.6 % (0-14.5); WHITE BLOOD COUNT 6.4 10*3/uL (4.8-10.8)
[2023-04-02 11:23] LABS: ALKALINE PHOSPHATASE 113 U/L (46-116); BUN 10 mg/dl (9-23); CHLORIDE 100 mmol/L (98-107); POTASSIUM 3.6 mmol/L (3.4-5.1); SGPT/ALT 8 U/L (10-49); TOTAL PROTEIN 7.8 gm/dL (6.0-8.0)
== END | disposition home or self-care (01) ==
LOC: LAB 09:52
PROVIDERS: ATTEND Family Medicine
DX: E11.9 Type 2 diabetes mellitus without complications (principal); I10 Essential (primary) hypertension; D64.9 Anemia, unspecified

== ENCOUNTER → 2023-07-18 | Outpatient (CLI) | payer BC ==
[2023-07-18 10:14] LABS: HEMATOCRIT 40.2 % (42.0-52.0); MEAN CELL VOLUME 81.4 fl (80.0-94.0); MEAN CORPUSCULAR HGB 27.7 pg (27.0-31.0); MEAN CORPUSCULAR HGB CONC 34.1 g/dl (33.0-37.0); MEAN PLATELET VOLUME 8.8 fl (9.6-12.3); RED BLOOD COUNT 4.94 10*6/uL (4.50-5.90); RED CELL DISTRI WIDTH 15.3 % (0-14.5); WHITE BLOOD COUNT 6.2 10*3/uL (4.8-10.8)
[2023-07-18 10:44] LABS: ALKALINE PHOSPHATASE 97 U/L (46-116); BUN 10 mg/dl (9-23); CHLORIDE 104 mmol/L (98-107); CHOLESTEROL 186 mg/dL (<200); CPK 56 U/L (34-171); LDL CHOLESTEROL 111 mg/dL (9-159); POTASSIUM 3.6 mmol/L (3.4-5.1); SGPT/ALT 17 U/L (10-49); TOTAL PROTEIN 7.2 gm/dL (6.0-8.0); TRIGLYCERIDES 151 mg/dl (<150)
[2023-07-18 11:06] LABS: VITAMIN D, 25-HYDROXY 25.4 ng/mL (30-100)
== END | disposition home or self-care (01) ==
LOC: LAB 09:53
PROVIDERS: ATTEND Family Medicine
DX: E78.00 Pure hypercholesterolemia, unspecified (principal); E55.9 Vitamin D deficiency, unspecified; I10 Essential (primary) hypertension; E11.9 Type 2 diabetes mellitus without complications; R53.83 Other fatigue

== ENCOUNTER → 2024-01-13 | Outpatient (CLI) | payer BC ==
[2024-01-13 10:47] LABS: HEMATOCRIT 45.4 % (42.0-52.0); MEAN CELL VOLUME 84.4 fl (80.0-94.0); MEAN CORPUSCULAR HGB 28.8 pg (27.0-31.0); MEAN CORPUSCULAR HGB CONC 34.1 g/dl (33.0-37.0); MEAN PLATELET VOLUME 9.2 fl (9.6-12.3); RED BLOOD COUNT 5.38 10*6/uL (4.50-5.90); RED CELL DISTRI WIDTH 13.1 % (0-14.5); WHITE BLOOD COUNT 7.7 10*3/uL (4.8-10.8)
[2024-01-13 11:17] LABS: ALKALINE PHOSPHATASE 120 U/L (46-116); BUN 9 mg/dl (9-23); CHLORIDE 103 mmol/L (98-107); CHOLESTEROL 202 mg/dL (<200); CPK 48 U/L (34-171); LDL CHOLESTEROL 113 mg/dL (9-159); POTASSIUM 3.7 mmol/L (3.4-5.1); SGPT/ALT 29 U/L (5-49); TOTAL PROTEIN 7.3 gm/dL (6.0-8.0); TRIGLYCERIDES 230 mg/dl (<150)
== END | disposition home or self-care (01) ==
LOC: LAB 10:26
PROVIDERS: ATTEND Family Medicine
DX: I12.9 Hypertensive chronic kidney disease with stage 1 through stage 4 chronic kidney disease, or unspecified chronic kidney disease (principal); E11.22 Type 2 diabetes mellitus with diabetic chronic kidney disease; N18.9 Chronic kidney disease, unspecified; R53.83 Other fatigue; E55.9 Vitamin D deficiency, unspecified; D64.9 Anemia, unspecified

== ENCOUNTER → 2024-05-20 | Outpatient (CLI) | payer BC ==
[2024-05-20 10:47] LABS: HEMATOCRIT 41.3 % (42.0-52.0); MEAN CELL VOLUME 84.1 fl (80.0-94.0); MEAN CORPUSCULAR HGB 30.3 pg (27.0-31.0); MEAN CORPUSCULAR HGB CONC 36.1 g/dl (33.0-37.0); MEAN PLATELET VOLUME 9.1 fl (9.6-12.3); RED BLOOD COUNT 4.91 10*6/uL (4.50-5.90); RED CELL DISTRI WIDTH 13.1 % (0-14.5); WHITE BLOOD COUNT 8.2 10*3/uL (4.8-10.8)
[2024-05-20 11:16] LABS: ALKALINE PHOSPHATASE 116 U/L (46-116); BUN 11 mg/dl (9-23); CHLORIDE 105 mmol/L (98-107); CHOLESTEROL 189 mg/dL (<200); CPK 64 U/L (34-171); LDL CHOLESTEROL 117 mg/dL (9-159); POTASSIUM 3.9 mmol/L (3.4-5.1); SGPT/ALT 22 U/L (5-49); TOTAL PROTEIN 7.3 gm/dL (6.0-8.0); TRIGLYCERIDES 142 mg/dl (<150)
[2024-05-24 08:07] LABS: TESTOSTERONE FREE, (DIRECT) 8.9 pg/mL (7.2-24.0)
== END | disposition home or self-care (01) ==
LOC: LAB 10:27
PROVIDERS: ATTEND Family Medicine
DX: E78.00 Pure hypercholesterolemia, unspecified (principal); I10 Essential (primary) hypertension; R53.83 Other fatigue; E11.9 Type 2 diabetes mellitus without complications

== ENCOUNTER → 2024-07-06 | Outpatient (CLI) | payer BC ==
[2024-07-08 15:07] LABS: TESTOSTERONE FREE, (DIRECT) 7.8 pg/mL (7.2-24.0)
== END | disposition home or self-care (01) ==
LOC: LAB 10:13
PROVIDERS: ATTEND Family Medicine
DX: N40.0 Benign prostatic hyperplasia without lower urinary tract symptoms (principal); N52.9 Male erectile dysfunction, unspecified

== ENCOUNTER → 2024-09-04 | Outpatient (CLI) | payer BC ==
[2024-09-04 09:38] LABS: HEMATOCRIT 42.4 % (42.0-52.0); MEAN CELL VOLUME 85.7 fl (80.0-94.0); MEAN CORPUSCULAR HGB 29.9 pg (27.0-31.0); MEAN CORPUSCULAR HGB CONC 34.9 g/dl (33.0-37.0); MEAN PLATELET VOLUME 9.1 fl (9.6-12.3); RED BLOOD COUNT 4.95 10*6/uL (4.50-5.90); RED CELL DISTRI WIDTH 12.8 % (0-14.5); WHITE BLOOD COUNT 8.5 10*3/uL (4.8-10.8)
[2024-09-04 10:08] LABS: ALKALINE PHOSPHATASE 111 U/L (46-116); BUN 10 mg/dl (9-23); CHLORIDE 101 mmol/L (98-107); CHOLESTEROL 179 mg/dL (<200); CPK 61 U/L (34-171); LDL CHOLESTEROL 92 mg/dL (9-159); SGPT/ALT 29 U/L (5-49); TOTAL PROTEIN 7.2 gm/dL (6.0-8.0); TRIGLYCERIDES 189 mg/dl (<150)
== END | disposition home or self-care (01) ==
LOC: LAB 09:04
PROVIDERS: ATTEND Family Medicine
DX: E78.00 Pure hypercholesterolemia, unspecified (principal); I10 Essential (primary) hypertension; E11.9 Type 2 diabetes mellitus without complications

== ENCOUNTER → 2025-03-24 | Outpatient (CLI) | payer BC ==
[2025-03-24 10:58] LABS: HEMATOCRIT 43.2 % (42.0-52.0); MEAN CELL VOLUME 84.4 fl (80.0-94.0); MEAN CORPUSCULAR HGB 29.7 pg (27.0-31.0); MEAN CORPUSCULAR HGB CONC 35.2 g/dl (33.0-37.0); MEAN PLATELET VOLUME 8.8 fl (9.6-12.3); RED BLOOD COUNT 5.12 10*6/uL (4.50-5.90); RED CELL DISTRI WIDTH 13.2 % (0-14.5); WHITE BLOOD COUNT 8.2 10*3/uL (4.8-10.8)
[2025-03-24 11:41] LABS: ALKALINE PHOSPHATASE 107 U/L (46-116); BUN 8 mg/dl (9-23); CHLORIDE 101 mmol/L (98-107); CHOLESTEROL 199 mg/dL (<200); CPK 62 U/L (34-171); LDL CHOLESTEROL 116 mg/dL (9-159); SGPT/ALT 39 U/L (5-49); TOTAL PROTEIN 7.5 gm/dL (6.0-8.0); TRIGLYCERIDES 201 mg/dl (<150)
[2025-03-24 11:45] LABS: VITAMIN D, 25-HYDROXY 35.6 ng/mL (30-100)
== END | disposition home or self-care (01) ==
LOC: LAB 10:37
PROVIDERS: ATTEND Family Medicine
DX: I10 Essential (primary) hypertension (principal); E78.00 Pure hypercholesterolemia, unspecified; E55.9 Vitamin D deficiency, unspecified

== ENCOUNTER → 2025-04-14 | Outpatient (CLI) | payer BC | END | disposition home or self-care (01) | LOC: LAB 10:56 | PROVIDERS: ATTEND Family Medicine | DX: N40.0 Benign prostatic hyperplasia without lower urinary tract symptoms (principal) ==

== ENCOUNTER → 2025-07-16 | Outpatient (CLI) | payer BC ==
[2025-07-16 08:24] LABS: MEAN CELL VOLUME 85.3 fl (80.0-94.0); MEAN CORPUSCULAR HGB 29.6 pg (27.0-31.0); MEAN PLATELET VOLUME 9.3 fl (9.6-12.3); NUCLEATED RED BLOOD CELL 0.0 % (0.0-0.0); NUCLEATED RED BLOOD CELL 0.0 10*3/uL (0.0-0.0); PLATELET COUNT AUTOMATED 261.0 10*3/uL (130-400); RED CELL DISTRI WIDTH 13.2 % (0-14.5)
[2025-07-16 09:01] LABS: BUN 9 mg/dl (9-23); CPK 52 U/L (34-171); LDL CHOLESTEROL 82 mg/dL (9-159); SGPT/ALT 30 U/L (5-49)
[2025-07-16 09:35] LABS: VITAMIN D, 25-HYDROXY 32.5 ng/mL (30-100)
== END | disposition home or self-care (01) ==
LOC: LAB 07:56
PROVIDERS: ATTEND Family Medicine
DX: I10 Essential (primary) hypertension (principal); E11.9 Type 2 diabetes mellitus without complications; E55.9 Vitamin D deficiency, unspecified; R53.83 Other fatigue

== ENCOUNTER → 2025-11-03 | Outpatient (CLI) | payer BC ==
[2025-11-03 09:49] LABS: MEAN CELL VOLUME 86.3 fl (80.0-94.0); MEAN CORPUSCULAR HGB 30.5 pg (27.0-31.0); MEAN PLATELET VOLUME 9.3 fl (9.6-12.3); NUCLEATED RED BLOOD CELL 0.0 % (0.0-0.0); NUCLEATED RED BLOOD CELL 0.0 10*3/uL (0.0-0.0); PLATELET COUNT AUTOMATED 232.0 10*3/uL (130-400); RED CELL DISTRI WIDTH 12.9 % (0-14.5)
[2025-11-03 10:24] LABS: BUN 13 mg/dl (9-23); CPK 55 U/L (34-171); LDL CHOLESTEROL 63 mg/dL (9-159); SGPT/ALT 23 U/L (5-49)
[2025-11-03 10:27] LABS: VITAMIN D, 25-HYDROXY 27.4 ng/mL (30-100)
== END | disposition home or self-care (01) ==
LOC: LAB 09:30
PROVIDERS: ATTEND Family Medicine
DX: I10 Essential (primary) hypertension (principal); E11.9 Type 2 diabetes mellitus without complications; E78.00 Pure hypercholesterolemia, unspecified; E55.9 Vitamin D deficiency, unspecified; R53.83 Other fatigue